=== PATIENT | female | born 1985 | race African-American/Black ===

== ENCOUNTER 2022-06-30 18:45 | Emergency (ER) | payer BC, SELFPAY ==
[2022-06-30 19:00] VITALS: BP 172/106; PULSE 101; RESP 20; TEMP 36.6; O2SAT 100
--- NOTE | 2022-06-30 19:53 | ED.BACK ---
HPI - Back Pain/Injury General Chief Complaint: Back Pain/Injury Stated Complaint: back pain Time Seen by Provider: 06/30/22 19:53 Source: patient, family and RN notes reviewed Mode of arrival: ambulatory Limitations: no limitations History of Present Illness HPI Narrative: [facility] with complaints of bilateral lower back pain for 1 week Denies any injury. Denies any loss or retention of bowel or bladder. No numbness or tingling in extremities. Walks with a normal gait. Was able to drive herself here. No treatment prior to arrival. Has not even taken her as needed gabapentin. MD elicited complaint: back pain Related Data Allergies Allergy/AdvReac Type Severity Reaction Status Date / Time No Known Allergies Allergy Verified 06/30/22 19:44 Review of Systems Review of Systems: All systems reviewed & are unremarkable except as noted in HPI and below Constitutional: Constitutional: Reports no additional constitutional complaints and Denies weakness Eyes: Eyes: Reports no additional eye complaints ENT: Reports system reviewed and no additional complaints, except as documented Cardiovascular: Cardiovascular: Reports no additional cardiovascular complaints and Denies chest pain Respiratory: Respiratory: Reports no additional respiratory complaints Gastrointestinal: Gastrointestinal: Reports no additional gastrointestinal complaints and Denies abdominal pain Musculoskeletal: Musculoskeletal: Reports as per HPI, Reports back pain, Denies arthralgias, Denies joint swelling and Denies numbness Integumentary/Breasts: Skin/Breast: Reports system reviewed and no additional complaints, except as docu Neurologic: Reports system reviewed and no additional complaints, except as documented, Denies focal weakness, Denies numbness and Denies weakness Psychiatric: Psychiatric: Reports no additional psychiatric complaints Allergic/Immunologic: Allergic/Immunologic: Reports no additional allergic/immunologic complaints PMFSH Comments At the time of my signature, I reviewed and agree with the nursing past medical, surgical, social, and family history. There is no relevant family history pertinent to the patient complaint. Exam Const: General: healthy appearing, no acute distress and alert Nutritional Appearance: well nourished Orientation/consciousness: patient oriented x3 Limitations: no limitations HENMT: Head: normal to inspection Ears: external ears normal General nose exam: Normal external nose present Face and sinus: normal facial exam Eyes: Pupils: Equal, round and reactive pupils present Neck: Neck: normal visual inspection, no lymphadenopathy and no meningeal signs Chest: Chest palpation & inspection: normal inspection of the chest Resp: Effort & Inspection: normal respiratory effort and no use of accessory muscles Auscultation: clear to auscultation bilaterally, no crackles, no rales, no rhonchi and no wheezes Cardio: Rate: regular rate Rhythm: regular rhythm : General: Yes no CVA tenderness Back/Spine/Pelvis: Back: no CVA tenderness Cervical Spine: normal cervical lordosis Thoracic/Lumbar Spine: thoracic and lumbar spine normal to inspection Other: Generalized lumbar pain with movement, changing of positions. Unable to reproduce pain on palpation. Skin: General skin exam: normal color Rashes: no rashes Wounds: no wounds Neuro: General: patient oriented x3, moves all extremities, no meningeal signs and no focal motor deficits Cranial nerves: Yes Equal, round and reactive pupils present Speech: normal speech Gait exam (Neuro): Normal gait present Extrem: General: normal to inspection and no pedal edema Psych: Appearance: grossly normal and well kempt Mental Status: mental status grossly normal Affect: normal affect Attitude: cooperative Thought content: Yes Normal thought content present Course Course Emergency Course: Discharge instructions reviewed with patient, as well as provided i
== END 2022-06-30 20:05 | disposition home or self-care (01) ==
PROVIDERS: Emergency Provider Nurse Practitioner
DX: S39.012A Strain of muscle, fascia and tendon of lower back, initial encounter (principal); X58.XXXA Exposure to other specified factors, initial encounter
CPT/HCPCS: 99213; G0463

== ENCOUNTER → 2022-09-08 11:42 | Outpatient (CLI) | payer BC, SELFPAY ==
--- NOTE | ~2022-09-08 | XR_ITS ---
EXAMINATION: XR lumbar spine 2-3V DATE: 09/08/2022 12:07 INDICATION: Unspecified urinary incontinence. TECHNIQUE: 3 views of lumbar spine were obtained. COMPARISON: None. FINDINGS: There are 4 nonrib-bearing lumbar type segments. Bone alignment is normal. There is a fract ure deformity of L1 vertebral body without height loss. There is mild chronic anterior wedging of T12 vertebral body. There is mildly decreased disc height at T12-L1, L1-L2, L2-L3, and L3-L4. There is m ultilevel mild facet joint osteoarthritis. IMPRESSION: 1. Mild lumbar spondylosis. Reviewed, dictated and finalized at location A. IMPRESSION: 1. Mild lumbar spondylosis.
== END ==
PROVIDERS: PCP Nurse Practitioner; Visit Provider Nurse Practitioner
DX: M54.50 Low back pain, unspecified (principal); R32 Unspecified urinary incontinence; M47.816 Spondylosis without myelopathy or radiculopathy, lumbar region
CPT/HCPCS: 72100

== ENCOUNTER 2023-12-14 17:17 | Emergency (ER) | payer BC, SELFPAY ==
[2023-12-14 17:29] VITALS: BP 172/116; PULSE 116; RESP 16; TEMP 36.9; O2SAT 98
--- NOTE | 2023-12-14 17:50 | ED.BACK ---
HPI - Back Pain/Injury General Chief Complaint: Back Pain/Injury Stated Complaint: back pain not a strain Time Seen by Provider: 12/14/23 17:50 Source: patient Mode of arrival: ambulatory Limitations: no limitations History of Present Illness HPI Narrative: 38-year-old female presents with complaint of she severe lower back pain, tightness similar back, pressure to rectum, feeling constipated with numbness to groin area starting today. Patient states history of spinal stenosis with tethered cord. sees a neurosurgeon Dr. Benson. Sat in u ER for 4 hours and left due to no treatment for her pain. Ambulatory with steady gait. History of clubfoot at . Patient takes gabapentin daily. All systems reviewed and negative except as noted above. Related Data Home Medications Medication Instructions Recorded Confirmed gabapentin 800 mg tablet 800 mg PO DAILY 09/08/22 09/25/22 baclofen 10 mg tablet 10 mg PO TID PRN Pain 12/14/23 Allergies Allergy/AdvReac Type Severity Reaction Status Date / Time No Known Allergies Allergy Verified 12/14/23 17:39 Review of Systems Review of Systems: CONSTITUTIONAL: Denies fever, chills, or sweats. EYES: Denies visual changes, redness, or discharge. ENT: Denies rhinorrhea, congestion, sore throat, or otalgia. CARDIOVASCULAR: Denies chest pain, palpitations, or edema. RESPIRATORY: Denies cough or dyspnea. GASTROINTESTINAL: Denies abdominal pain, nausea, vomiting, or diarrhea. Reports constipation. GENITOURINARY: Denies dysuria or hematuria. SKIN: Denies rash or itching. MUSCULOSKELETAL: Reports lower back pain back pain with pressure to rectum, numbness to groin area. Denies joint pain, or myalgia. NEUROLOGIC: Denies headache, numbness, or weakness. PSYCHIATRIC: Denies anxiety or depression. All other systems reviewed are negative, except as documented in HPI. 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 There is no relevant family history pertinent to the presenting complaint. Exam Narrative: GENERAL: This is a well-nourished, well-developed patient, in no apparent distress. HEAD: normocephalic, atraumatic. EYES: PERRL. Sclera clear/white. Vision is grossly intact. EARS: External ears normal NOSE: External nose normal NECK: Neck supple, non-tender without lymphadenopathy, masses or thyromegaly. CARDIOVASCULAR: Regular rate and rhythm without murmurs, gallops, or rubs. RESPIRATORY: Clear to auscultation. Breath sounds equal bilaterally. No wheezes, rales, or rhonchi. SKIN: warm, Dry, intact with no suspicious lesions or rash, good texture and turgor. NEURO: awake, alert, and oriented to person, place and time. There were no obvious focal neurologic abnormalities. EXTREMITIES: No joint tenderness, effusion, or edema noted. No calf tenderness. Negative Homans sign bilaterally. BACK: midline tenderness lumbar area with muscular tenderness and spasm Course Course Level of Care: [facility] Visit Vital Signs Vital signs: Vital Signs Temperature 36.9 C 12/14/23 17:29 Pulse Rate 116 H 12/14/23 17:29 Respiratory Rate 16 12/14/23 17:29 Blood Pressure 172/116 H 12/14/23 17:29 Pulse Oximetry 98 12/14/23 17:29 Oxygen Delivery Room Air 12/14/23 17:29 Temperature 36.9 C 12/14/23 17:29 Pulse Rate 116 H 12/14/23 17:29 Respiratory Rate 16 12/14/23 17:29 Blood Pre
== END 2023-12-14 18:11 | disposition short-term general hospital (02) ==
PROVIDERS: Emergency Provider Nurse Practitioner Family; PCP Nurse Practitioner
DX: M54.50 Low back pain, unspecified (principal); R29.818 Other symptoms and signs involving the nervous system; F17.210 Nicotine dependence, cigarettes, uncomplicated; Q66.89 Other specified congenital deformities of feet
CPT/HCPCS: 99211; 99212; G0463

== ENCOUNTER 2023-12-14 18:26 | Emergency (ER) | payer BC, SELFPAY ==
--- NOTE | ~2023-12-14 | CT_ITS ---
EXAMINATION: CT abd pelvis lumbar w con DATE: 12/15/2023 00:47 INDICATION: Left lower quadrant abdominal pain. Back pain. TECHNIQUE: Computed tomography (CT) of the abdomen and pelvis and lumbar spine was performed with 100 mL Omnipaque 350 intravenous contrast. Automated exposure control and iterative reconstruction techn ique were employed. The dose-length product was 1351.22 mGy-cm. COMPARISON: None FINDINGS: CT ABDOMEN AND PELVIS: The visualized portions of the lung bases demonstrate mild atelectasis. No ple ural effusion. The heart size is normal. No pericardial effusion. The liver, gallbladder, spleen, mcdowell creas, and adrenal glands, are normal. There is cortical thinning of the kidneys. There is a 2.6 cm i ntramural uterine fibroid. There are no dilated loops of bowel. The appendix is normal. There are no pathologically enlarged lymph nodes. There is no free intraperitoneal fluid. There is a supraumbilica l ventral hernia containing fat. There is mild thoracic spondylosis. CT LUMBAR SPINE: There is 4 degrees dextrocurvature of lumbar spine. There is an old fracture deformi ty of L2 involving the vertebral body and posterior elements. There is mildly decreased disc height f rom L1-L2 through L5-S1. The following disc levels are specifically discussed: L1-L2: The disc is bulging. There is severe bilateral facet joint osteoarthritis. There is mild right and severe left neural foraminal stenosis. There is mild central canal stenosis. L2-L3: The disc does not extend beyond the endplate margin. There is severe right facet joint osteoar thritis. There is ankylosis of left facet joint with moderate hypertrophy. There is moderate right an d mild left neural foraminal stenosis. There is no central canal stenosis. L3-L4: The disc is bulging. There is severe bilateral facet joint osteoarthritis. There is mild right and moderate left neural foraminal stenosis. There is mild central canal stenosis. L4-L5: The disc is bulging. There is severe bilateral facet joint osteoarthritis. There is mild bilat eral neural foraminal stenosis. There is no central canal stenosis. L5-S1: The disc is bulging. There is moderate bilateral facet joint osteoarthritis. There is mild lef t neural foraminal stenosis. There is mild central canal stenosis. IMPRESSION: 1. Uterine fibroid. 2. Supraumbilical ventral hernia containing fat. 3. Moderate lumbar spondylosis. Reviewed, dictated and finalized at location A. PICKER
[2023-12-14 19:13] VITALS: BP 181/122; PULSE 114; TEMP 36.4; O2SAT 98
[2023-12-14 21:31] VITALS: BP 174/107; PULSE 118; TEMP 36.4; O2SAT 94
--- NOTE | 2023-12-14 22:50 | ECG_ITS ---
Measurements Intervals [place] Rate: 101 P: 44 FL: 128 QRS: 23 QRSD: 81 T: 47 QT: 348 QTc: 453 Interpretive Statements SINUS TACHYCARDIA POSSIBLE LEFT ATRIAL ENLARGEMENT [-0.1mV P-WAVE IN V1/V2] NO PREVIOUS ECG AVAILABLE FOR COMPARISON Electronically Signed On 12-15-2023 8:45:58 [employer] by Breanne Hairston M.D.
--- NOTE | 2023-12-14 22:53 | ED.BACK ---
HPI - Back Pain/Injury General Chief Complaint: Back Pain/Injury Stated Complaint: BACK PAIN Time Seen by Provider: 12/14/23 22:36 History of Present Illness HPI Narrative: 38-year-old female with a known history of tethered cord syndrome, spinal stenosis, bladder and bowel incontinence since childhood reports for evaluation for worsening lower back pain that is radiating to her rectum, to her groin, into her inner thigh. She is also reporting mild pain to the L side of her abdomen. She has had the symptoms for approximately 1 week and took gabapentin Flexeril this morning without improvement. She denies worsening bowel or bladder continence, urinary retention, saddle anesthesia, lower extremity weakness. Denies recent surgeries or injections to her back, fever, dysuria or hematuria, urinary frequency urgency, vaginal bleeding or discharge. LMP 1 week ago. Patient's neurosurgeons are Dr. Sagastume and Dr. Pantoja. 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 She follows with urology for urinary incontinence and received botox injection. Denies fever, vomiting. Related Data Home Medications Medication Instructions Recorded Confirmed gabapentin 800 mg tablet 800 mg PO DAILY 09/08/22 09/25/22 baclofen 10 mg tablet 10 mg PO TID PRN Pain 12/14/23 Allergies Allergy/AdvReac Type Severity Reaction Status Date / Time No Known Allergies Allergy Verified 12/14/23 17:39 Review of Systems Review of Systems: CONSTITUTIONAL: Denies fever, chills, or sweats. EYES: Denies visual changes, redness, or discharge. ENT: Denies rhinorrhea, congestion, sore throat, or otalgia. CARDIOVASCULAR: Denies chest pain, palpitations, or edema. RESPIRATORY: Denies cough or dyspnea. GASTROINTESTINAL: See HPI GENITOURINARY: Denies dysuria or hematuria. SKIN: Denies rash or itching. MUSCULOSKELETAL: See HPI NEUROLOGIC: Denies headache, numbness, or weakness. PSYCHIATRIC: Denies anxiety or depression. 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 Patient appears in pain HEAD: Normocephalic, atraumatic. EYES: PERRLA and EOMI. ENT: Nares clear, no rhinorrhea or epistaxis. Mucous membranes moist. NECK: Supple. BACK: No midline thoracolumbar spinous tenderness, step-offs or deformities. Tenderness to the right lumbar spinous muscles. No overlying skin changes. CHEST: Clear to auscultation. No respiratory distress. HEART: Regular rate and rhythm. No murmur heard. Normal peripheral pulses. ABDOMEN: Normoactive bowel sounds. Abdomen soft with mild tenderness in the left mid abdomen. No guarding, rebound or rigidity. Normal rectal exam, no erythema, induration, fluctuance or rash. EXTREMITIES: Normal range of motion. No edema. SKIN: Warm, dry, no rash. NEURO: No focal deficits. Alert and oriented x3. Strength 5/5 in BUE and BLE. Sensation intact throughout, no saddle anesthesia. Ambulatory with a steady gait Course Vital Signs Vital signs: Vital Signs Temperature 97.5 F L 12/14/23 19:13 Pulse Rate 114 H 12/14/23 19:13 Blood Pressure 181/122 H 12/14/23 19:13 Pulse Oximetry 98 12/14/23 19:13 Temperature 97.6 F 12/14/23 21:31 Pulse Rate 108 H 12/14/23 23:44 Respiratory Rate 18 12/14/23 23:44 Blood Pressure 160/105 H 12/14/23 23:44 Pulse Oximetry 100 12/14/23 23:44 MDM - Back Pain/Injury MDM Narrative Medical
[2023-12-14] MEDS: CYCLOBENZAPRINE HCL 10 MG TABLET PO (23:37)
[2023-12-14] MEDS: KETOROLAC 30 MG/ML VIAL (*BKC) IV PUSH (23:37)
[2023-12-14] MEDS: LIDOCAINE 5% PATCH 1 PATCH TRANSDERM (23:37)
[2023-12-14] MEDS: SODIUM CHLORIDE 0.9% IV 1,000 ML 999 ML IV CONT (23:38)
[2023-12-14 23:44] VITALS: BP 160/105; PULSE 108; RESP 18; O2SAT 100
[2023-12-14 23:53] LABS: Basophils Absolute Auto 0.1 K/mm3 (0.0-0.1); Basophils Percent Auto 0.8 % (0.2-1.2); Eosinophils Absolute Auto 0.1 K/mm3 (0-0.3); Eosinophils Percent Auto 1.4 % (0-4.4); Hematocrit 43.7 % (37.0-47.0); Hemoglobin 14.5 g/dL (12.0-15.0); Immature Granulocyte Absolute 0.04 K/mm3 (0.00-0.031); Immature Granulocyte Percent A 0.4 % (0-0.5); Lymphocytes Absolute Auto 3.57 K/mm3 (0.9-3.2); Lymphocytes Percent Auto 34.9 % (18.3-44.2); Mean Corpuscular HGB Conc 33.2 g/dl (32-36); Mean Corpuscular Hemoglobin 31.3 pg (26-34); Mean Corpuscular Volume 94.4 fl (80-100); Mean Platelet Volume 9.8 fl (7.4-10.4); Monocytes Absolute Auto 0.8 K/mm3 (0.1-0.6); Monocytes Percent Auto 7.6 % (2.6-8.5); Neutrophils Absolute Auto 5.6 K/mm3 (1.3-6.7); Neutrophils Percent Auto 54.9 % (45.5-73.1); Platelet Count Result 384 k/mm3 (150-375); Red Blood Count 4.63 M/mm3 (4.2-5.4); Red Cell Distribution Width 12.6 % (11.5-14.5); White Blood Count 10.2 K/mm3 (4.5-10.0)
[2023-12-15] LABS: Appearance Urine Cloudy (Clear); Bacteria Urine 4+ /hpf; Bilirubin Urine Negative (Negative); Blood Urine Negative (Negative); Color Urine Yellow (Yellow); Glucose Urine UA Negative (Negative); Ketones Urine Negative (Negative); Leukocyte Esterase Ur Trace LEU/UL (Negative); Nitrate Urine Negative (Negative); Non Pathogenic Casts 0-2; Protein Urine Negative (Negative); RBC Urine 0-2 /hpf (0-2); Specific Grav Ur 1.026 (1.001-1.035); Squamous Epithelial Cell Urine Few /hpf (Few); pH Urine 5.5 (5.0-9.0)
[2023-12-15 00:03] LABS: Alanine Aminotransferase 12 U/L (6-35); Albumin Level 4.2 g/dL (3.5-5.1); Alkaline Phosphatase 94 U/L (38-126); Anion Gap 9 mmol/L (8-16); Aspartate Amino Transferase 20 U/L (14-36); Bilirubin,Total 0.5 mg/dL (0.2-1.3); Blood Urea Nitrogen 11 mg/dL (7-17); Calcium 9.4 mg/dL (8.4-10.2); Carbon Dioxide 24 mmol/L (22-30); Chloride 106 mmol/L (98-107); Estimated CRCL calculation 103 ml/min; Estimated Glomerular Filt Rate > 60; Glucose 102 mg/dL (65-110); Lipase 55 U/L (23-300); Potassium 3.6 mmol/L (3.4-5.0); Sodium 139 mmol/L (137-145)
[2023-12-15 00:06] LABS: Add Urine Microscopic? YES
[2023-12-15 03:42] VITALS: BP 155/93; PULSE 106; RESP 15; O2SAT 100
== END 2023-12-15 03:44 | disposition home or self-care (01) ==
PROVIDERS: Emergency Provider Physician Assistant; PCP Nurse Practitioner
DX: M54.50 Low back pain, unspecified (principal); R10.9 Unspecified abdominal pain; D25.9 Leiomyoma of uterus, unspecified; M47.816 Spondylosis without myelopathy or radiculopathy, lumbar region; M48.061 Spinal stenosis, lumbar region without neurogenic claudication; G95.81 Conus medullaris syndrome; Q06.8 Other specified congenital malformations of spinal cord; R32 Unspecified urinary incontinence; R15.9 Full incontinence of feces; F17.210 Nicotine dependence, cigarettes, uncomplicated; K43.9 Ventral hernia without obstruction or gangrene; R94.31 Abnormal electrocardiogram [ECG] [EKG]; R00.0 Tachycardia, unspecified
CPT/HCPCS: 36415; 72132; 74177; 80053; 81001; 83690; 85025; 87086; 93005; 96361; 96374; 99212; 99284; A9270; G0463; J1885; J7030; Q9967

== ENCOUNTER 2023-12-18 19:46 | Emergency (ER) | payer BC, SELFPAY ==
--- NOTE | ~2023-12-18 | CT_ITS ---
EXAMINATION: CT lumbar spine wo con DATE: 12/19/2023 02:46 INDICATION: Low back pain TECHNIQUE: Computed tomography (CT) of the lumbar spine was performed without intravenous contrast. T he dose-length product (DLP) was 1133.55 mGy-cm. Iterative reconstruction was used. COMPARISON: 12/15/2023 FINDINGS: Again noted are old healed fractures of the L2 vertebral body and posterior elements. There is mild loss of intervertebral disc space height throughout the lumbar spine. No acute fracture is i dentified. Bone alignment is normal. There is sclerosis at the left sacroiliac joint. There is severe bilateral facet joint osteoarthritis of the lower lumbar spine. IMPRESSION: 1. Moderate lumbar spondylosis without acute findings. 2. Healed L2 fracture. Reviewed, dictated and finalized at location F. ITION THERAPIST
[2023-12-18 19:55] VITALS: BP 164/116; PULSE 136; RESP 16; TEMP 36.6; O2SAT 99
[2023-12-19] MEDS: ACETAMINOPHEN 500 MG TABLET 1000 MG PO (01:52)
[2023-12-19] MEDS: methylPREDNISolone SOD SUCC 125 MG VIAL IV PUSH (01:57)
[2023-12-19] MEDS: KETOROLAC 30 MG/ML VIAL (*BKC) IV PUSH (02:00)
[2023-12-19] MEDS: diazePAM INJ (*CRX) 10 MG/2 ML SYRINGE 2 MG IV PUSH (02:01)
[2023-12-19 02:03] VITALS: BP 160/120; PULSE 122; RESP 15; O2SAT 96
--- NOTE | 2023-12-19 02:38 | ED.BACK ---
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 Patient has history of chronic back pain. She has previously seen Dr. Sagastume and Dr. Pantoja with Neurosurgery. Patient was seen in our ED on 12/[address] of the lumbar spine at that time showed moderate lumbar spondylosis. Several bulging discs. A few areas with mild central canal stenosis, no severe stenosis, no acute findings. She was given pain management in the ED and symptoms were improved. She was discharged with ibuprofen, Flexeril, lidocaine patches. Patient reports continued worsening pain since then. Describes pain as pressure in lower back going into rectum and down thighs. States her legs gave out on her today due to the pain, which prompted her presentation. Denies any injury or strenuous activity. She took ibuprofen once today, has not taken anything further for pain today. Reports intermittent numbness in her pelvic region and lower abdomen which began yesterday, denies numbness currently. This was not reported when patient was seen in the ED the other day. Denies weakness of lower extremities. Denies changes in her chronic bowel or bladder incontinence. Denies fevers. Related Data Home Medications Medication Instructions Recorded Confirmed gabapentin 800 mg tablet 800 mg PO DAILY 09/08/22 09/25/22 baclofen 10 mg tablet 10 mg PO TID PRN Pain 12/14/23 Allergies Allergy/AdvReac Type Severity Reaction Status Date / Time No Known Allergies Allergy Verified 12/18/23 19:48 Review of Systems Review of Systems: CONSTITUTIONAL: Denies fever, chills, or sweats. GASTROINTESTINAL: Denies abdominal pain, nausea, vomiting, or diarrhea. GENITOURINARY: See HPI. MUSCULOSKELETAL: See HPI. NEUROLOGIC: See HPI. 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 HEAD: Normocephalic, atraumatic. RESPIRATORY: Airway patent, respirations nonlabored. Clear to auscultation bilaterally, no rales, rhonchi, wheezing. CARDIOVASCULAR: Regular rate and rhythm without murmurs, rubs, or gallops. MUSCULOSKELETAL: Moves all extremities. Club feet deformities to BLE. Limited movement of RUE d/t hx of brachial plexus injury. No appreciable tenderness throughout midline spine and thoracic or lumbar regions. No palpable deformities or bony step-offs. No significant appreciable tenderness throughout paraspinal musculature, patient reporting pain deeper. Sensation intact throughout lower extremities and lower back. No paresthesias. Strength 5/5 in lower extremities bilaterally. SKIN: Warm, dry, normal color. NEURO: A&O X3. Speech clear. Cranial nerves II-XII grossly intact. No ataxic movements. PSYCHIATRIC: Appropriate mood and affect. Normal interaction. Course Vital Signs Vital signs: Vital Signs Temperature 97.8 F 12/18/23
[2023-12-19 04:57] VITALS: BP 158/110; PULSE 114; RESP 16; O2SAT 100
== END 2023-12-19 04:58 | disposition home or self-care (01) ==
PROVIDERS: Emergency Provider Physician Assistant; PCP Nurse Practitioner
DX: S39.012A Strain of muscle, fascia and tendon of lower back, initial encounter (principal); M47.816 Spondylosis without myelopathy or radiculopathy, lumbar region; Q06.8 Other specified congenital malformations of spinal cord; N31.9 Neuromuscular dysfunction of bladder, unspecified; R15.9 Full incontinence of feces; R32 Unspecified urinary incontinence; F17.210 Nicotine dependence, cigarettes, uncomplicated; X58.XXXA Exposure to other specified factors, initial encounter
CPT/HCPCS: 72131; 96374; 96375; 99284; A9270; J1885; J2930; J3360